=== PATIENT | male | born 1945 | race Caucasian/White ===

== ENCOUNTER 2019-04-17 09:37 | Observation (INO) | payer MEDICARE ==
[~2019-04-17] VITALS: Ht 180.3 cm; Wt 80.5 kg
[2019-04-17 10:02] VITALS: BP 105/82
[2019-04-17] MEDS ORDERED: NITR0.4T28 SL (10:20)
[2019-04-17] MEDS ORDERED: ASPI81TA45 PO (10:20)
[2019-04-17] MEDS ORDERED: FLUT9.9S INH (10:21)
[2019-04-17] MEDS ORDERED: TERA2CAP3 PO (10:23)
[2019-04-17] MEDS ORDERED: IBUP-1222 PO (10:24)
[2019-04-17 10:51] LABS: BASOPHILS # (AUTO) 0.02 x10^3/uL (0-0.1); BASOPHILS % (AUTO) 1 % (0-1); EOSINOPHILS # (AUTO) 0.02 x10^3/uL (0-0.4); EOSINOPHILS % (AUTO) 1 % (1-7); LYMPHOCYTES # (AUTO) 0.82 x10^3/uL (1-3.4); LYMPHOCYTES % (AUTO) 26 % (22-44); MD NO; MEAN CORPUSCULAR HEMOGLOBIN 30.5 pg (27.5-34.5); MEAN CORPUSCULAR HGB CONC 33.3 g/dL (33.2-36.2); MEAN CORPUSCULAR VOLUME 91.6 fL (81-97); MONOCYTES # (AUTO) 0.29 x10^3/uL (0.2-0.8); MONOCYTES % (AUTO) 9 % (2-9); NEUTROPHILS # (AUTO) 1.97 x10^3/uL (1.8-6.8); NEUTROPHILS % (AUTO) 63 % (42-75); PLATELET COUNT 111 x10^3/uL (130-400); RED BLOOD COUNT 5.18 x10^6/uL (4.38-5.82)
[2019-04-17 10:59] LABS: ANION GAP 6 mmol/L (5-15); CALCIUM 8.7 mg/dL (8.5-10.1); CHLORIDE 109 mmol/L (98-107)
[2019-04-17 11:02] LABS: CREATININE 0.85 mg/dL (0.7-1.3)
[2019-04-17] MEDS ORDERED: FENTANYL PF 100 MCG/2ML ONE (11:20)
[2019-04-17] MEDS ORDERED: HEPARIN 1,000 UNITS/ML, 10ML ONE (11:20)
[2019-04-17] MEDS ORDERED: MIDAZOLAM 1 MG/ML, 5ML ONE (11:20)
[2019-04-17] MEDS ORDERED: LIDOCAINE 1%, 20ML ONE (11:20)
[2019-04-17] MEDS ORDERED: VERAPAMIL 2.5 MG/ML, 2ML ONE (11:20)
[2019-04-17] MEDS ORDERED: BIVALIRUDIN 250 MG ONE (12:19)
[2019-04-17] MEDS ORDERED: CLOPIDOGREL 300 MG TABLET ONE (12:58)
[2019-04-17] MEDS: SODIUM CHLORIDE 0.9% 1,000 ML IV SCH ×2 (13:12→21:41)
[2019-04-17] MEDS ORDERED: BIVALIRUDIN 250 MG in SODIUM CHLORIDE 0.9% 50 ML IV SCH (13:12)
[2019-04-17] MEDS ORDERED: IBUPROFEN 600 MG TABLET PO PRN (13:30)
[2019-04-17 14:05] VITALS: BP 148/93
[2019-04-17 18:30] VITALS: BP 107/64
[2019-04-17] MEDS: EZETIMIBE 10 MG TABLET PO SCH (18:40)
[2019-04-17] MEDS ORDERED: TERAZOSIN HOMEMEDPO SCH (22:00)
[2019-04-18 03:02] VITALS: BP 117/75
[2019-04-18 05:09] LABS: ANION GAP 3 mmol/L (5-15); CALCIUM 8.3 mg/dL (8.5-10.1); CHLORIDE 109 mmol/L (98-107); CREATININE 1.01 mg/dL (0.7-1.3)
[2019-04-18] MEDS: SODIUM CHLORIDE 0.9% 1,000 ML IV SCH (05:12)
[2019-04-18 08:01] VITALS: BP 119/76
[2019-04-18] MEDS: EZETIMIBE 10 MG TABLET PO SCH (08:34)
[2019-04-18] MEDS ORDERED: TERAZOSIN 2MG CAPSULE PO SCH (09:00)
[2019-04-18] MEDS ORDERED: CLOPIDOGREL 75 MG TABLET PO SCH (09:00)
[2019-04-18] MEDS ORDERED: ASPIRIN 81 MG TABLET EC PO SCH (09:00)
[2019-04-18] MEDS ORDERED: CLOP75TA PO (09:18)
[2019-04-18] MEDS ORDERED: EZET10TA18 PO (09:18)
== END 2019-04-18 11:21 | disposition home or self-care (01) ==
LOC: CACL 09:37 → ORIP 13:12 → 5SO 13:19
PROVIDERS: ADMIT Internal Medicine Cardiovascular Disease; ATTEND Internal Medicine Cardiovascular Disease
DX: I25.110 Atherosclerotic heart disease of native coronary artery with unstable angina pectoris (principal); I25.82 Chronic total occlusion of coronary artery; I25.2 Old myocardial infarction; E78.5 Hyperlipidemia, unspecified; G47.30 Sleep apnea, unspecified; D72.819 Decreased white blood cell count, unspecified; Z79.82 Long term (current) use of aspirin; Z79.899 Other long term (current) drug therapy
CPT/HCPCS: 36415; 80048; 85014; 85018; 85025; 93005; 93458; 99156; 99157; C1725; C1769; C1874; C1887; C1894; C9600; G0378; J0583; J1644; J2250; J3010; J3490; Q9967